=== PATIENT | male | born 1995 | race Caucasian/White ===

== ENCOUNTER 2021-03-20 02:40 | Emergency (ER) | payer OTHER ==
[~2021-03-20 02:40] MED LIST: ACET500 PO; ALPR.5 PO; AMPDEX10 PO; CLIN300 PO; HYDACE5 PO; HYDR1TAB94 PO; IBUP600 PO; NAPR500 PO; PROM25 PO; RANI150 PO; RXCODACET PO
== END 2021-03-20 05:28 | disposition home or self-care (01) ==
LOC: ER 02:40
DX: S02.672B Fracture of alveolus of left mandible, initial encounter for open fracture (principal); S02.652B Fracture of angle of left mandible, initial encounter for open fracture; F17.200 Nicotine dependence, unspecified, uncomplicated; Z88.0 Allergy status to penicillin; Z88.6 Allergy status to analgesic agent; Z88.5 Allergy status to narcotic agent; X58.XXXA Exposure to other specified factors, initial encounter
CPT/HCPCS: 12001; 70450; 70486; 96372-59; 99283-25; A9270; J1885

== ENCOUNTER 2021-07-19 04:34 | Emergency (ER) | payer OTHER ==
[~2021-07-19] VITALS: Ht 190.5 cm; Wt 81.7 kg
== END 2021-07-19 05:05 | disposition home or self-care (01) ==
LOC: ER 04:34
DX: R51.9 Headache, unspecified (principal); F17.200 Nicotine dependence, unspecified, uncomplicated; Z98.890 Other specified postprocedural states
CPT/HCPCS: 96372; 99283-25; J1885

== ENCOUNTER 2021-08-29 16:18 | Emergency (ER) | payer OTHER ==
[~2021-08-29] VITALS: Ht 190.5 cm; Wt 83.9 kg
== END 2021-08-29 17:05 | disposition home or self-care (01) ==
LOC: ER 16:18
DX: R45.851 Suicidal ideations (principal); Z53.21 Procedure and treatment not carried out due to patient leaving prior to being seen by health care provider
CPT/HCPCS: 99284

== ENCOUNTER 2022-08-06 23:52 | Emergency (ER) | payer SELFPAY ==
[~2022-08-06] VITALS: Ht 185.4 cm; Wt 79.4 kg
== END 2022-08-07 00:18 | disposition home or self-care (01) ==
LOC: ER 23:52
DX: F41.9 Anxiety disorder, unspecified (principal); F15.10 Other stimulant abuse, uncomplicated; F17.210 Nicotine dependence, cigarettes, uncomplicated; Z88.0 Allergy status to penicillin; Z88.6 Allergy status to analgesic agent; Z88.5 Allergy status to narcotic agent
CPT/HCPCS: 99283; A9270

== ENCOUNTER 2022-09-30 22:33 | Emergency (ER) | payer OTHER ==
[~2022-09-30] VITALS: Ht 190.5 cm; Wt 81.7 kg
[2022-10-01] MEDS ORDERED: CRUTCH2 XX (00:01)
== END 2022-09-30 23:58 | disposition home or self-care (01) ==
LOC: ER 22:33
DX: S82.61XA Displaced fracture of lateral malleolus of right fibula, initial encounter for closed fracture (principal); F17.210 Nicotine dependence, cigarettes, uncomplicated; X50.1XXA Overexertion from prolonged static or awkward postures, initial encounter; Z88.0 Allergy status to penicillin
CPT/HCPCS: 73610